=== PATIENT | male | born 1965 | race Two or more races ===

== ENCOUNTER 2020-04-21 10:35 | Inpatient (IN) | payer OTHER ==
[~2020-04-21] VITALS: Ht 170.2 cm; Wt 76.1 kg
[2020-04-21] MEDS ORDERED: ONDANSETRON HCL 4 MG/2 ML VIAL IV ONE (10:45)
[2020-04-21] MEDS ORDERED: SODIUM CHLORIDE 0.9% 1,000 ML IVB ONE (10:45)
[2020-04-21] MEDS ORDERED: PANTOPRAZOLE 40 MG/10 ML VIAL INJ IV STA (10:45)
[2020-04-21 11:15] LABS: Basophils # (auto) 0 10 ^3/uL (0-0.2); Basophils % (auto) 0.3 % (0.0-2.0); Eosinophils # (auto) 0 10 ^3/uL (0-0.8); Eosinophils % (auto) 0.1 % (0.0-7.0); Hemoglobin 9.4 g/dL (13.5-17.5); Lymphocytes # (auto) 1.4 10 ^3/uL (0.4-5.4); Lymphocytes % (auto) 10.9 % (10.0-50.0); Mean Corpuscular Hemoglobin 30.7 pg (28.0-32.0); Mean Corpuscular Hgb Conc. 34.7 g/dL (32.0-36.0); Mean Corpuscular Volume 88.4 fL (80.0-100.0); Monocytes # (auto) 0.6 10 ^3/uL (0-1.3); Monocytes % (auto) 4.4 % (0.0-12.0); Neutrophils # (auto) 11.1 10 ^3/uL (1.6-8.6); Neutrophils % (auto) 84.3 % (37.0-80.0); Platelet Count (auto) 98 10^3/uL (140-450); Red Blood Cells 3.06 10^6/uL (4.5-5.90); Red Cell Distribution Width 13.3 % (11.8-14.3); White Blood Cell 13.1 10^3/uL (4.4-10.8)
[2020-04-21 11:47] LABS: Chloride 106 mmol/L (98-107); Potassium 3.5 mmol/L (3.5-5.1); Sodium 137 mmol/L (136-145)
[2020-04-21 11:54] LABS: Alanine Aminotransferase 38 U/L (16-61); Albumin 2.8 g/dL (3.4-5.0); Alkaline Phosphatase 108 U/L (45-117); Anion Gap 9 (5-15); Aspartate Aminotransferase 14 U/L (15-37); BUN/Creatinine Ratio 82.6; Bilirubin, Total 0.5 mg/dL (0.2-1.0); Blood Alcohol < 3.0 mg/dL (0-5); Blood Urea Nitrogen 57 mg/dL (7-18); Calcium 8.3 mg/dL (8.5-10.1); Carbon Dioxide 22 mmol/L (21-32); GFR African American 149 mL/min; GFR Non-African American 123 mL/min; Glucose 134 mg/dL (74-106); Lipase 54 U/L (73-393); Total Protein 5.6 g/dL (6.4-8.2)
[2020-04-21] MEDS ORDERED: ALUM & MAG HYDROX-SIMETH LIQ(MAALOX) 30 ML PO PRN (12:15)
[2020-04-21] MEDS ORDERED: ACETAMINOPHEN 325 MG TAB PO PRN (12:15)
[2020-04-21] MEDS ORDERED: DOCUSATE SOD 100 MG CAP PO PRN (12:15)
[2020-04-21] MEDS ORDERED: ONDANSETRON HCL 4 MG/2 ML VIAL IV PRN (12:15)
[2020-04-21] MEDS ORDERED: SUCRALFATE 1 GM TAB PO ONE (12:15)
[2020-04-21] MEDS ORDERED: PANTOPRAZOLE 40 MG/10 ML VIAL INJ IV ONE (12:15)
[2020-04-21] MEDS ORDERED: LORazepam 0.5 MG TAB PO PRN (12:15)
[2020-04-21] MEDS ORDERED: HYDROcodone-ACET 5/325MG TAB PO PRN (12:15)
[2020-04-21] MEDS ORDERED: MORPHINE SULF INJ 2 MG/ML SYRINGE 1ML IV PRN ×2 (12:15)
[2020-04-21] MEDS ORDERED: cefTRIAXone 1GM/50ML D5W 50 ML IV ONE (12:15)
[2020-04-21] MEDS ORDERED: NITROGLYCERIN 0.4 MG SL TAB SL PRN (12:15)
[2020-04-21] MEDS: SODIUM CHLORIDE 0.9% 1,000 ML IV SCH ×2 (12:26→22:15)
[2020-04-21] MEDS ORDERED: LORazepam 2MG/ML-1ML VIAL IV ONE (12:30)
[2020-04-21] MEDS: chlordiazePOXIDE HCL 25 MG CAP PO SCH ×2 (12:41→19:55)
[2020-04-21] MEDS ORDERED: THIAMINE 100mg/ml INJ (200mg/2ml VIAL) IV ONE (12:45)
[2020-04-21] MEDS ORDERED: MULTIPLE VITAMIN TAB PO ONE (12:45)
[2020-04-21] MEDS ORDERED: FOLIC ACID 1 MG TAB PO ONE (12:45)
[2020-04-21 12:52] LABS: INR 1.06 (0.9-1.15)
[2020-04-21] MEDS ORDERED: POTASSIUM CHL 20MEQ/100ML 100 ML IV ONE (13:00)
[2020-04-21 14:19] VITALS: BP 112/68
[2020-04-21 17:00] VITALS: BP 122/78
[2020-04-21] MEDS: SUCRALFATE 1 GM TAB PO SCH ×2 (17:15→21:46)
[2020-04-21] MEDS: PANTOPRAZOLE 40 MG/10 ML VIAL INJ IV SCH (21:46)
[2020-04-21 22:00] VITALS: BP 131/66
[2020-04-21] MEDS ORDERED: PROPRANOLOL HCL 20 MG TAB PO SCH (22:00)
[2020-04-21 22:45] LABS: Urine Bacteria NONE SEEN /hpf (None Seen); Urine Blood Negative /uL (Negative); Urine WBC 1 /hpf (0 - 3)
[2020-04-21 22:55] LABS: Alcohol, Urine < 3.0 mg/dL (0-10); Amphetamine Screen, Urine NEGATIVE (NEGATIVE); Barbiturate Scree,Urine NEGATIVE (NEGATIVE); Benzodiazephine Screen, Urine POSITIVE (NEGATIVE); Cannabinoid Screen, Urine NEGATIVE (NEGATIVE); Cocaine Screen, Urine NEGATIVE (NEGATIVE); Opiate Scree,Urine NEGATIVE (NEGATIVE); Phencyclidine Screen, Urine NEGATIVE (NEGATIVE)
[2020-04-22] VITALS (8 sets, daily range): BP systolic 99–130; BP diastolic 49–74
[2020-04-22] MEDS: chlordiazePOXIDE HCL 25 MG CAP PO SCH ×3 (04:20→21:49)
[2020-04-22] MEDS: SUCRALFATE 1 GM TAB PO SCH ×4 (06:07→21:48)
[2020-04-22] MEDS: SODIUM CHLORIDE 0.9% 1,000 ML IV SCH (07:44)
[2020-04-22] MEDS ORDERED: cefTRIAXone 1GM/50ML D5W 50 ML IV SCH (09:00)
[2020-04-22] MEDS ORDERED: LIDOCAINE VISCOUS 2% 15ML UD ONE (09:03)
[2020-04-22] MEDS ORDERED: SODIUM CHLORIDE LOCK 10 ML ONE (09:03)
[2020-04-22] MEDS ORDERED: diphenhdrAMINE HCL 50 MG/1 ML VL ONE (09:04)
[2020-04-22] MEDS: THIAMINE HCL 100 MG TAB PO SCH (10:00)
[2020-04-22] MEDS: PANTOPRAZOLE 40 MG/10 ML VIAL INJ IV SCH ×2 (10:00→21:48)
[2020-04-22] MEDS: MULTIPLE VITAMIN TAB PO SCH (10:00)
[2020-04-22] MEDS: FOLIC ACID 1 MG TAB PO SCH (10:00)
[2020-04-22] MEDS: fentaNYL CITRATE 100 MCG/2 ML VL ONE ×2 (10:34→10:37)
[2020-04-22] MEDS: MIDAZOLAM HCL 5 MG/ML-1ML VIAL ONE ×2 (10:34→10:37)
[2020-04-22 11:55] LABS: Basophils # (auto) 0 10 ^3/uL (0-0.2); Basophils % (auto) 0.5 % (0.0-2.0); Eosinophils # (auto) 0.1 10 ^3/uL (0-0.8); Eosinophils % (auto) 1.8 % (0.0-7.0); Hematocrit 20.5 % (41.0-53.0); Lymphocytes # (auto) 1.4 10 ^3/uL (0.4-5.4); Lymphocytes % (auto) 28.7 % (10.0-50.0); Mean Corpuscular Hemoglobin 30.5 pg (28.0-32.0); Mean Corpuscular Hgb Conc. 33.7 g/dL (32.0-36.0); Mean Corpuscular Volume 90.4 fL (80.0-100.0); Monocytes # (auto) 0.2 10 ^3/uL (0-1.3); Monocytes % (auto) 4.3 % (0.0-12.0); Neutrophils # (auto) 3.2 10 ^3/uL (1.6-8.6); Neutrophils % (auto) 64.7 % (37.0-80.0); Nucleated Red Blood Cells % 0.1 %; Platelet Count (auto) 50 10^3/uL (140-450); Red Blood Cells 2.27 10^6/uL (4.5-5.90); Red Cell Distribution Width 13.2 % (11.8-14.3)
[2020-04-22 12:03] LABS: Hemoglobin 6.9 g/dL (13.5-17.5)
[2020-04-22 12:19] LABS: Calcium 7.5 mg/dL (8.5-10.1); Potassium 3.6 mmol/L (3.5-5.1)
[2020-04-22 12:21] LABS: BUN/Creatinine Ratio 47.7
[2020-04-23 04:58] VITALS: BP 100/63
[2020-04-23 06:40] LABS: Basophils # (auto) 0 10 ^3/uL (0-0.2); Basophils % (auto) 0.3 % (0.0-2.0); Eosinophils # (auto) 0.2 10 ^3/uL (0-0.8); Hemoglobin 7.8 g/dL (13.5-17.5); Lymphocytes # (auto) 1.8 10 ^3/uL (0.4-5.4); Neutrophils # (auto) 3.1 10 ^3/uL (1.6-8.6); Nucleated Red Blood Cells % 0.1 %; Platelet Count (auto) 53 10^3/uL (140-450); Red Cell Distribution Width 13.3 % (11.8-14.3)
[2020-04-23 06:43] LABS: Eosinophils % (auto) 3.2 % (0.0-7.0); Lymphocytes % (auto) 33.8 % (10.0-50.0); Mean Corpuscular Hemoglobin 30.6 pg (28.0-32.0); Mean Corpuscular Hgb Conc. 33.9 g/dL (32.0-36.0); Mean Corpuscular Volume 90.3 fL (80.0-100.0); Monocytes # (auto) 0.3 10 ^3/uL (0-1.3); Monocytes % (auto) 4.7 % (0.0-12.0); Red Blood Cells 2.55 10^6/uL (4.5-5.90); White Blood Cell 5.4 10^3/uL (4.4-10.8)
[2020-04-23 06:52] LABS: Potassium 3.6 mmol/L (3.5-5.1)
[2020-04-23 06:57] LABS: Albumin 2.6 g/dL (3.4-5.0); BUN/Creatinine Ratio 28.8; Bilirubin, Total 0.3 mg/dL (0.2-1.0); Total Protein 5.2 g/dL (6.4-8.2)
[2020-04-23] MEDS: SUCRALFATE 1 GM TAB PO SCH ×4 (07:17→22:21)
[2020-04-23 09:00] VITALS: BP 112/72
[2020-04-23] MEDS: FOLIC ACID 1 MG TAB PO SCH (09:39)
[2020-04-23] MEDS: PANTOPRAZOLE 40 MG/10 ML VIAL INJ IV SCH ×2 (09:39→22:21)
[2020-04-23] MEDS: THIAMINE HCL 100 MG TAB PO SCH (09:40)
[2020-04-23] MEDS: chlordiazePOXIDE HCL 25 MG CAP PO SCH ×2 (09:40→22:21)
[2020-04-23] MEDS: MULTIPLE VITAMIN TAB PO SCH (09:40)
[2020-04-23 13:00] VITALS: BP 96/61
[2020-04-23 16:47] VITALS: BP 107/62
[2020-04-23 22:00] VITALS: BP 115/66
[2020-04-24 05:00] VITALS: BP 105/64
[2020-04-24] MEDS: SUCRALFATE 1 GM TAB PO SCH ×2 (06:29→11:53)
[2020-04-24] MEDS ORDERED: chlordiazePOXIDE HCL 25 MG CAP PO SCH (07:00)
[2020-04-24 07:52] LABS: Basophils # (auto) 0 10 ^3/uL (0-0.2); Eosinophils # (auto) 0.2 10 ^3/uL (0-0.8); Hemoglobin 8.2 g/dL (13.5-17.5); Lymphocytes # (auto) 1.7 10 ^3/uL (0.4-5.4); Monocytes # (auto) 0.3 10 ^3/uL (0-1.3); Neutrophils # (auto) 2.8 10 ^3/uL (1.6-8.6)
[2020-04-24 07:54] LABS: Basophils % (auto) 0.3 % (0.0-2.0); Eosinophils % (auto) 4.1 % (0.0-7.0); Hematocrit 24.8 % (41.0-53.0); Lymphocytes % (auto) 33.5 % (10.0-50.0); Mean Corpuscular Hemoglobin 30.3 pg (28.0-32.0); Mean Corpuscular Hgb Conc. 32.9 g/dL (32.0-36.0); Mean Corpuscular Volume 91.8 fL (80.0-100.0); Monocytes % (auto) 6.8 % (0.0-12.0); Neutrophils % (auto) 55.3 % (37.0-80.0); Nucleated Red Blood Cells % 0.3 %; Platelet Count (auto) 56 10^3/uL (140-450)
[2020-04-24 09:00] VITALS: BP 117/71
[2020-04-24] MEDS: FOLIC ACID 1 MG TAB PO SCH (09:19)
[2020-04-24] MEDS: PANTOPRAZOLE 40 MG/10 ML VIAL INJ IV SCH (09:19)
[2020-04-24] MEDS: MULTIPLE VITAMIN TAB PO SCH (09:20)
[2020-04-24] MEDS: THIAMINE HCL 100 MG TAB PO SCH (09:20)
[2020-04-24 13:00] VITALS: BP 124/71
[2020-04-24] MEDS ORDERED: THIA100T10 PO (13:31)
[2020-04-24] MEDS ORDERED: PANT40TA2 PO (13:32)
[2020-04-24] MEDS ORDERED: SUCR1TAB22 PO (13:33)
[2020-04-24 14:53] VITALS: BP 131/66
== END 2020-04-24 17:30 | disposition home or self-care (01) | DRG 242 ==
LOC: ER 10:35 → EDBD 10:35 → TELE 10:36 → TELE-WESTW 13:50
PROVIDERS: ADMIT Hospitalist; ATTEND Internal Medicine Nephrology
PROC: 30233N1 Transfusion of Nonautologous Red Blood Cells into Peripheral Vein, Percutaneous Approach (ICD-10-PCS; 2020-04-22)
PROC: 0DB68ZX Excision of Stomach, Via Natural or Artificial Opening Endoscopic, Diagnostic (ICD-10-PCS; principal; 2020-04-22 10:30)
DX: K22.11 Ulcer of esophagus with bleeding (principal); K29.70 Gastritis, unspecified, without bleeding; F10.239 Alcohol dependence with withdrawal, unspecified; K29.81 Duodenitis with bleeding; D62 Acute posthemorrhagic anemia; D69.59 Other secondary thrombocytopenia; F17.200 Nicotine dependence, unspecified, uncomplicated; E87.6 Hypokalemia; E78.00 Pure hypercholesterolemia, unspecified; K52.9 Noninfective gastroenteritis and colitis, unspecified; F12.90 Cannabis use, unspecified, uncomplicated; E66.9 Obesity, unspecified; J45.909 Unspecified asthma, uncomplicated; E78.5 Hyperlipidemia, unspecified; F41.9 Anxiety disorder, unspecified; Z68.27 Body mass index [BMI] 27.0-27.9, adult; Z71.41 Alcohol abuse counseling and surveillance of alcoholic; Z20.828 Contact with and (suspected) exposure to other viral communicable diseases; E88.09 Other disorders of plasma-protein metabolism, not elsewhere classified
CPT/HCPCS: 36415; 43239; 74176; 80048; 80053; 80061; 80307; 80320; 81001; 83036; 83690; 84484; 85025; 85610; 86850; 86900; 86901; 86920; 87040; 87086; 93005; 93306; C9113; G0378; J0696; J2250; J2405; J3480